=== PATIENT | male | born 1990 | race Two or more races ===

== ENCOUNTER 2024-04-29 16:34 | Inpatient (IN) | payer MEDICAID, OTHER ==
[~2024-04-29] VITALS: Ht 165.1 cm; Wt 68.1 kg
[2024-04-29 17:32] LABS: BASOPHILS % (AUTO) 0.9 % (0.0-2.0); EOSINOPHILS % (AUTO) 0.8 % (1.0-6.0); HEMATOCRIT 46.9 % (41-53); HEMOGLOBIN 15.7 g/dL (13.5-17.5); LYMPHOCYTES # (AUTO) 2.2 K/uL (1.0-4.8); LYMPHOCYTES % (AUTO) 22.2 % (22.0-44.0); MEAN CORPUSCULAR HEMOGLOBIN 27.7 pg (26.0-34.0); MEAN CORPUSCULAR HGB CONC 33.6 G/dL (31.0-37.0); MEAN CORPUSCULAR VOLUME 83 fL (80-100); MONOCYTES # (AUTO) 0.9 K/uL (0.1-1.0); MONOCYTES % (AUTO) 9.1 % (2.0-9.0); NEUTROPHILS # (AUTO) 6.5 K/uL (1.8-7.7); PLATELET COUNT (AUTO) 352 K/uL (150-450); RED BLOOD CELL COUNT(AUTO) 5.69 MIL/uL (4.50-5.90); RED CELL DISTRIBUTION WIDTH 13.3 % (11.5-14.5); WHITE BLOOD COUNT (AUTO) 9.8 K/uL (4.5-11.0)
[2024-04-29 17:39] LABS: ANION GAP 13 mmol/L (8-16); CALCIUM, TOTAL 9.7 mg/dL (8.8-10.5); CARBON DIOXIDE 28 mmol/L (22-29); CHLORIDE 105 mmol/L (98-107); CREATININE 0.86 mg/dL (0.60-1.30); GLOMERULAR FILTR. RATE CALC > 60 mL/min (>60); GLUCOSE,RANDOM 106 mg/dL (70-110); POTASSIUM 3.7 mmol/L (3.5-5.1); SODIUM SERUM 146 mmol/L (136-145); UREA NITROGEN, BLOOD 13 mg/dL (7-18)
[2024-04-29 17:51] LABS: COVID AG,FIA SOURCE NASAL SWAB
[2024-04-29 17:54] LABS: ALCOHOL, BLOOD (SERUM) 65 mg/dL (0-10)
[2024-04-29 18:10] LABS: SARS-COV2 (COVID) ANTIGEN,FIA Negative (Negative)
[2024-04-29] MEDS ORDERED: ZOLPIDEM TARTRATE 10 MG TABLET PO PRN (18:15)
[2024-04-29] MEDS ORDERED: LORazepam 2 MG TABLET PO PRN (18:15)
[2024-04-29] MEDS ORDERED: HALOPERIDOL 5 MG TABLET PO PRN (18:15)
[2024-04-29] MEDS ORDERED: HALOPERIDOL LACTATE 5 MG/ML VIAL ONE (23:30)
[2024-04-29] MEDS ORDERED: LORazepam 2 MG/ML VIAL ONE (23:31)
[2024-04-29] MEDS ORDERED: DiphenhydrAMINE HCL 50 MG/ML VIAL ONE (23:31)
[2024-04-30] MEDS: LORazepam 2 MG/ML VIAL IM ONE (00:30)
[2024-04-30] MEDS: DiphenhydrAMINE HCL 50 MG/ML VIAL IM ONE (00:31)
[2024-04-30] MEDS: HALOPERIDOL LACTATE 5 MG/ML VIAL IM ONE (00:31)
[2024-04-30 01:50] VITALS: BP 119/74; PULSE 91; RESP 18; TEMP 98.4; O2SAT 97
[2024-04-30] MEDS: INFLUENZA VIRUS VACCINE TVS (6MO+) 2024-25/PF 45 MCG/0.5 ML SYRINGE IM. ONE (04:55)
[2024-04-30 08:35] VITALS: RESP 16
[2024-04-30] MEDS ORDERED: GuaiFENesin/D-METHORPHAN [SUGAR-FREE] 200-20MG/10 ML SYRUP UDCUP PO PRN (10:15)
[2024-04-30] MEDS ORDERED: CloNIDine HCL 0.1 MG TABLET PO PRN (10:15)
[2024-04-30] MEDS ORDERED: DOCUSATE SODIUM 100 MG CAPSULE PO PRN (10:15)
[2024-04-30] MEDS ORDERED: IBUPROFEN 400 MG TABLET PO PRN (10:15)
[2024-04-30] MEDS ORDERED: ALBUTEROL SULFATE HFA 90 MCG/PUFF 8 GM INHALER IH PRN (10:15)
[2024-04-30] MEDS ORDERED: ONDANSETRON 4 MG TABLET PO PRN (10:15)
[2024-04-30] MEDS ORDERED: MAG HYDROX/ALUMINUM HYD/SIMETH ES 30 ML SUSPENSION UDCUP PO PRN (10:15)
[2024-04-30] MEDS ORDERED: MAGNESIUM HYDROXIDE SUSPENSION 30 ML UDCUP PO PRN (10:15)
[2024-04-30] MEDS ORDERED: NICOTINE 14 MG/24 HOUR PATCH TD PRN (10:15)
[2024-04-30] MEDS ORDERED: ACETAMINOPHEN 325 MG TABLET PO PRN (10:15)
[2024-04-30] MEDS ORDERED: PETROLATUM,WHITE 28 GM JELLY TP PRN (10:15)
[2024-04-30] MEDS ORDERED: LOPERAMIDE HCL 2 MG CAPSULE PO PRN (10:15)
[2024-04-30] MEDS ORDERED: SERT-440 PO (10:21)
[2024-04-30] MEDS: SERTRALINE HCL 100 MG TABLET PO SCH (10:54)
[2024-04-30 17:30] VITALS: BP 149/80; PULSE 96; RESP 18; TEMP 97.2; O2SAT 95
[2024-05-01] VITALS (7 sets, daily range): BP systolic 112–138; BP diastolic 71–130; PULSE 74–99; RESP 18; TEMP 97–98; O2SAT 96–98
[2024-05-01 08:15] LABS: HEMOGLOBIN A1C 5.1 % (3.8-5.6)
[2024-05-01 08:33] LABS: CHOL/HDL RATIO 1.9 (4.2-7.3); THYROID STIMULATING HORMONE 0.37 uIU/mL (0.36-3.74)
[2024-05-02 01:40] VITALS: BP 115/75; PULSE 80; RESP 17; TEMP 97.5; O2SAT 98
[2024-05-02 05:44] VITALS: BP 121/81; PULSE 78; RESP 16; TEMP 97.7; O2SAT 99
[2024-05-02 08:50] VITALS: BP 132/75; PULSE 89; RESP 18; TEMP 97.7; O2SAT 97
[2024-05-02 09:45] LABS: ANION GAP 11 mmol/L (8-16); CALCIUM, TOTAL 9.6 mg/dL (8.8-10.5); CARBON DIOXIDE 29 mmol/L (22-29); CHLORIDE 102 mmol/L (98-107); GLOMERULAR FILTR. RATE CALC > 60 mL/min (>60); GLUCOSE,RANDOM 209 mg/dL (70-110); SODIUM SERUM 142 mmol/L (136-145); UREA NITROGEN, BLOOD 19 mg/dL (7-18)
[2024-05-02] MEDS ORDERED: SERT-162 PO (12:07)
== END 2024-05-02 14:40 | disposition home or self-care (01) | DRG 754 ==
LOC: EMS 16:34 → B2S 23:54
PROVIDERS: ADMIT Psychiatry & Neurology Psychiatry; ATTEND Psychiatry & Neurology Psychiatry
PROC: GZHZZZZ Group Psychotherapy (ICD-10-PCS; principal; 2024-04-30)
PROC: GZ52ZZZ Individual Psychotherapy, Cognitive (ICD-10-PCS; 2024-05-02)
DX: F32.9 Major depressive disorder, single episode, unspecified (principal); E87.0 Hyperosmolality and hypernatremia; R45.851 Suicidal ideations; F10.10 Alcohol abuse, uncomplicated; Z20.822 Contact with and (suspected) exposure to COVID-19; F17.200 Nicotine dependence, unspecified, uncomplicated; F22 Delusional disorders; G40.909 Epilepsy, unspecified, not intractable, without status epilepticus; Y90.3 Blood alcohol level of 60-79 mg/100 ml; Z71.6 Tobacco abuse counseling; Z79.899 Other long term (current) drug therapy; Z90.49 Acquired absence of other specified parts of digestive tract
CPT/HCPCS: 80048; 80061; 83036; 84443; 85025; 99285; G0480; J1200; J1630; J2060

== ENCOUNTER 2024-05-21 00:12 | Inpatient (IN) | payer MEDICAID, OTHER ==
[~2024-05-21] VITALS: Ht 170.2 cm; Wt 68.2 kg
[~2024-05-21 00:12] MED LIST: SERT-162 PO
[2024-05-21 00:20] VITALS: O2SAT 99
[2024-05-21 01:06] LABS: COVID AG,FIA SOURCE NASAL SWAB
[2024-05-21 01:12] LABS: SARS-COV2 (COVID) ANTIGEN,FIA Negative (Negative)
[2024-05-21 01:13] LABS: BASOPHILS % (AUTO) 1.4 % (0.0-2.0); EOSINOPHILS % (AUTO) 1.8 % (1.0-6.0); HEMATOCRIT 42.8 % (41-53); HEMOGLOBIN 14.5 g/dL (13.5-17.5); LYMPHOCYTES # (AUTO) 2.3 K/uL (1.0-4.8); LYMPHOCYTES % (AUTO) 27.8 % (22.0-44.0); MEAN CORPUSCULAR HEMOGLOBIN 27.9 pg (26.0-34.0); MEAN CORPUSCULAR HGB CONC 33.8 G/dL (31.0-37.0); MEAN CORPUSCULAR VOLUME 83 fL (80-100); MONOCYTES # (AUTO) 0.9 K/uL (0.1-1.0); MONOCYTES % (AUTO) 11.2 % (2.0-9.0); NEUTROPHILS # (AUTO) 4.7 K/uL (1.8-7.7); NEUTROPHILS % (AUTO) 57.8 % (40.0-70.0); PLATELET COUNT (AUTO) 418 K/uL (150-450); RED BLOOD CELL COUNT(AUTO) 5.17 MIL/uL (4.50-5.90); RED CELL DISTRIBUTION WIDTH 13.3 % (11.5-14.5); WHITE BLOOD COUNT (AUTO) 8.1 K/uL (4.5-11.0)
[2024-05-21 01:21] LABS: ANION GAP 6 mmol/L (8-16); CALCIUM, TOTAL 9.8 mg/dL (8.8-10.5); CARBON DIOXIDE 32 mmol/L (22-29); CHLORIDE 104 mmol/L (98-107); CREATININE 0.94 mg/dL (0.60-1.30); GLOMERULAR FILTR. RATE CALC > 60 mL/min (>60); GLUCOSE,RANDOM 91 mg/dL (70-110); POTASSIUM 3.7 mmol/L (3.5-5.1); SODIUM SERUM 142 mmol/L (136-145); UREA NITROGEN, BLOOD 14 mg/dL (7-18)
[2024-05-21 01:27] LABS: ALCOHOL, BLOOD (SERUM) < 3 mg/dL (0-10)
[2024-05-21] MEDS: HALOPERIDOL 5 MG TABLET PO PRN (04:58)
[2024-05-21] MEDS: LORazepam 2 MG TABLET PO PRN (05:01)
[2024-05-21] MEDS: ZOLPIDEM TARTRATE 10 MG TABLET PO PRN (05:03)
[2024-05-21 10:00] VITALS: BP 130/84; PULSE 82; RESP 14; TEMP 97.6; O2SAT 98
[2024-05-21] MEDS: SERTRALINE HCL 100 MG TABLET PO SCH (12:41)
[2024-05-21 20:34] VITALS: BP 135/81; PULSE 79; RESP 16; TEMP 97.6; O2SAT 95
[2024-05-22 08:31] VITALS: BP 134/80; PULSE 82; RESP 18; TEMP 97.4; O2SAT 97
[2024-05-22 08:55] LABS: HEMOGLOBIN A1C 5.3 % (3.8-5.6)
[2024-05-22 09:02] LABS: CHOL/HDL RATIO 2.1 (4.2-7.3); FREE T4 (FREE THYROXINE) 1.06 ng/dL (0.76-1.46); THYROID STIMULATING HORMONE 0.88 uIU/mL (0.36-3.74)
[2024-05-22 20:22] VITALS: BP 137/84; PULSE 100; RESP 16; TEMP 97; O2SAT 96
[2024-05-23 09:49] VITALS: BP 122/75; PULSE 91; RESP 16; TEMP 97.9; O2SAT 96
[2024-05-23 20:14] VITALS: BP 121/77; PULSE 97; RESP 16; TEMP 98; O2SAT 96
[2024-05-24 08:43] VITALS: BP 148/90; PULSE 82; RESP 18; TEMP 97.5; O2SAT 96
[2024-05-24 09:50] LABS: APPEARANCE,URINE CLEAR (CLEAR); BILIRUBIN,URINE NEGATIVE (NEGATIVE); COLOR,URINE YELLOW (YELLOW); GLUCOSE, URINE (UA) NEGATIVE (NEGATIVE); KETONES,URINE NEGATIVE (NEGATIVE); LEUKOCYTE ESTERASE ,URINE NEGATIVE (NEGATIVE); NITRATE,URINE NEGATIVE (NEGATIVE); OCCULT BLOOD,URINE TRACE (NEGATIVE); PH,URINE 6.5 (5.0-8.0); PH,URINE DRUG SCREEN 6.5 (5.0-8.0); PROTEIN,URINE NEGATIVE (NEGATIVE); SPECIFIC GRAVITIY, URINE 1.027 (1.003-1.030); UROBILINOGEN,URINE <=1.0 mg/dL (<=1.0)
[2024-05-24 09:53] LABS: BACTERIA,URINE None Seen /HPF (None Seen); RBC,URINE 0-2 /HPF (0-2); WBC,URINE None Seen /HPF (0-5)
[2024-05-24 09:56] LABS: AMPHET/METH SCREEN,URINE POSITIVE (NEGATIVE); BARBITURATE SCREEN, URINE NEGATIVE (NEGATIVE); BENZODIAZEPINES SCREEN,URINE NEGATIVE (NEGATIVE); CANNABINOID SCREEN,URINE POSITIVE (NEGATIVE); COCAINE SCREEN,URINE NEGATIVE (NEGATIVE); METHADONE SCREEN, URINE NEGATIVE (NEGATIVE); OPIATE SCREEN,URINE NEGATIVE (NEGATIVE); PHENCYCLIDINE SCREEN,URINE NEGATIVE (NEGATIVE)
[2024-05-24 09:57] LABS: ALCOHOL, URINE DRUG SCREEN NEGATIVE (NEGATIVE)
[2024-05-24] MEDS ORDERED: LOPERAMIDE HCL 2 MG CAPSULE PO PRN (19:30)
[2024-05-24] MEDS ORDERED: PETROLATUM,WHITE 28 GM JELLY TP PRN (19:30)
[2024-05-24] MEDS ORDERED: ALBUTEROL SULFATE HFA 90 MCG/PUFF 8 GM INHALER IH PRN (19:30)
[2024-05-24] MEDS ORDERED: NICOTINE 14 MG/24 HOUR PATCH TD PRN (19:30)
[2024-05-24] MEDS ORDERED: IBUPROFEN 400 MG TABLET PO PRN (19:30)
[2024-05-24] MEDS ORDERED: MAGNESIUM HYDROXIDE SUSPENSION 30 ML UDCUP PO PRN (19:30)
[2024-05-24] MEDS ORDERED: ACETAMINOPHEN 325 MG TABLET PO PRN (19:30)
[2024-05-24] MEDS ORDERED: GuaiFENesin/D-METHORPHAN [SUGAR-FREE] 200-20MG/10 ML SYRUP UDCUP PO PRN (19:30)
[2024-05-24] MEDS ORDERED: MAG HYDROX/ALUMINUM HYD/SIMETH ES 30 ML SUSPENSION UDCUP PO PRN (19:30)
[2024-05-24] MEDS ORDERED: CloNIDine HCL 0.1 MG TABLET PO PRN (19:30)
[2024-05-24] MEDS ORDERED: ONDANSETRON 4 MG TABLET PO PRN (19:30)
[2024-05-24] MEDS ORDERED: DOCUSATE SODIUM 100 MG CAPSULE PO PRN (19:30)
[2024-05-24 20:00] VITALS: BP 137/84; PULSE 85; RESP 16; TEMP 98; O2SAT 97
[2024-05-25 08:02] VITALS: BP 136/90; PULSE 99; RESP 16; TEMP 98; O2SAT 96
[2024-05-25 08:51] LABS: HEMOGLOBIN A1C 5.3 % (3.8-5.6)
[2024-05-25 09:26] LABS: CHOL/HDL RATIO 2.5 (4.2-7.3); THYROID STIMULATING HORMONE 2.25 uIU/mL (0.36-3.74)
[2024-05-25] MEDS ORDERED: SERT-162 PO (21:54)
== END 2024-05-25 18:00 | disposition left against medical advice (07) | DRG 751 ==
LOC: EMS 00:12 → B3A 08:45
PROVIDERS: ADMIT Psychiatry & Neurology Psychiatry; ATTEND Psychiatry & Neurology Psychiatry
PROC: GZHZZZZ Group Psychotherapy (ICD-10-PCS; principal; 2024-05-21)
PROC: GZ52ZZZ Individual Psychotherapy, Cognitive (ICD-10-PCS; 2024-05-21)
DX: F33.2 Major depressive disorder, recurrent severe without psychotic features (principal); R45.851 Suicidal ideations; F25.1 Schizoaffective disorder, depressive type; G40.909 Epilepsy, unspecified, not intractable, without status epilepticus; Z20.822 Contact with and (suspected) exposure to COVID-19; Z53.29 Procedure and treatment not carried out because of patient's decision for other reasons; G47.00 Insomnia, unspecified; Z79.899 Other long term (current) drug therapy; Z90.49 Acquired absence of other specified parts of digestive tract
CPT/HCPCS: 80048; 80061; 80307; 81001; 83036; 84439; 84443; 85025; 87081; G0480